=== PATIENT | male | born 1995 | race Two or more races ===

== ENCOUNTER 2019-02-16 18:19 | Emergency (ER) | payer MEDICAID ==
[~2019-02-16] VITALS: Ht 165.1 cm; Wt 81.6 kg
[2019-02-16 18:20] VITALS: BP 135/86
== END 2019-02-16 18:47 | disposition home or self-care (01) ==
LOC: EDUNIT# 18:19 → EDBD 18:19 → ER 18:31
DX: S40.211A Abrasion of right shoulder, initial encounter (principal); V49.69XA Unspecified car occupant injured in collision with other motor vehicles in traffic accident, initial encounter; Y93.89 Activity, other specified; Y99.8 Other external cause status; Y92.89 Other specified places as the place of occurrence of the external cause